=== PATIENT | male | born 1990 | race American Indian/Alaskan Native ===

== ENCOUNTER 2020-12-30 14:07 | Emergency (ER) | payer SELFPAY ==
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
== END 2020-12-30 17:08 | disposition home or self-care (01) ==
LOC: ED 14:07
DX: N50.811 Right testicular pain (principal); Z79.899 Other long term (current) drug therapy
CPT/HCPCS: 93975